=== PATIENT | female | born 1935 | race Caucasian/White ===

== ENCOUNTER 2017-06-29 14:04 | Inpatient (IN) | payer MEDICARE, OTHER ==
[2017-06-29] MEDS ORDERED: IPRATROPIUM-ALBUTEROL 3 ML NEB INHALATION STA (14:15)
[2017-06-29] MEDS ORDERED: methylPREDNISolone SOD SUCCI 125 MG/2 ML VIAL IV STA (14:16)
[2017-06-29] MEDS ORDERED: IPRATROPIUM 0.5 MG/2.5 ML NEBU INHALATION STA (14:16)
[2017-06-29] MEDS ORDERED: ALBUTEROL NEBULIZED 2.5 MG/3 ML INHALATION STA (14:16)
[2017-06-29 14:41] LABS: Basophils % (A) 0 %; Eosinophils # (A) 0.2 k/uL (0-0.7); Eosinophils % (A) 3 %; HCT 43.9 % (34.0-46.0); HGB 14.3 gm/dL (11.4-16.0); Lymphocytes % (A) 11 %; MCH 30.6 pg (25.0-35.0); MCHC 32.5 g/dL (31.0-37.0); MCV 94.1 fL (80.0-100.0); Mean Platelet Volume 7.7; Monocytes # (A) 0.5 k/uL (0-1.0); Monocytes % (A) 5 %; Neutrophils # (A) 6.7 k/uL (1.3-7.7); Neutrophils % (A) 77 %; Platelet Count 144 k/uL (150-450); RBC 4.66 m/uL (3.80-5.40); RDW 14.1 % (11.5-15.5); WBC 8.7 k/uL (3.8-10.6)
--- NOTE | 2017-06-29 14:42 | ED ---
General Adult HPI - General Chief complaint: Shortness of Breath Stated complaint: SOB Time Seen by Provider: 06/29/17 14:16 Source: patient, RN notes reviewed, old records reviewed Mode of arrival: wheelchair Limitations: no limitations - History of Present Illness Initial comments: This is an 82-year-old female to the ER for evaluation. This patient presents today for evaluation regards to shortness of breath severe shortness of breath with history of COPD. Patient also has some history of heart disease, denies chest pain. Patient went to get her mail today came back in the house and was unable to breathe, is brought in by friend who states patient was significantly short of breath is progressively worsened on arrival to ER. Patient unable to give significant history at this time - Related Data Home Medications Medication Instructions Recorded Confirmed Aspirin 81 mg PO DAILY 12/18/13 06/29/17 FLUoxetine HCL [PROzac] 40 mg PO DAILY 12/18/13 06/29/17 Levothyroxine Sodium [Synthroid] 112 mcg PO DAILY 12/18/13 06/29/17 amLODIPine [Norvasc] 5 mg PO DAILY 12/18/13 06/29/17 Cholecalciferol [Vitamin D3] 1,000 unit PO DAILY 10/24/14 06/29/17 Multivit-Min/FA/Lycopene/Lut 1 tab PO DAILY 10/24/14 06/29/17 [Centrum Silver Tablet] Artificial Tears-Hypromellose 1 drops BOTH EYES QID PRN 05/21/16 06/29/17 [Artificial Tear Drops] Ketotifen Fumarate [Zaditor] 1 drop BOTH EYES BID 05/21/16 06/29/17 Biotin 7,500 mcg PO DAILY 06/29/17 06/29/17 Magnesium Gluconate [Magonate] 500 mg PO DAILY 06/29/17 06/29/17 Mometasone/Formoterol [Dulera 200 2 puff INHALATION RT-BID 06/29/17 06/29/17 Mcg/5 Mcg Inhaler] Allergies Allergy/AdvReac Type Severity Reaction Status Date / Time adhesive Allergy SURGICAL Verified 06/29/17 14:49 TAPE PEELED OFF SKIN-states "paper tape is ok" allopurinol Allergy Avoids d/t Verified 06/29/17 14:49 severe family reaction dexlansoprazole Allergy Nausea & Verified 01/20/18 14:49 [From Kapidex] Vomiting & Diarrhea Penicillins Allergy Rash/Hives Verified 06/29/17 14:49 Sulfa (Sulfonamide Allergy Rash/Hives Verified 06/29/17 14:49 Antibiotics) ibuprofen [From Motrin] AdvReac HEMMORRHOIDAL Verified 06/29/17 14:49 BLEEDING Review of Systems ROS Statement: Those systems with pertinent positive or pertinent negative responses have been documented in the HPI. ROS Other: All systems not noted in ROS Statement are negative. Past Medical History Past Medical History: Asthma, Cancer, GERD/Reflux, Hearing Disorder / Deafness, Hypertension, Osteoarthritis (OA), Pneumonia, Pulmonary Embolus (PE), Thyroid Disorder Additional Past Medical History / Comment(s): HX RT KIDNEY CA., PE(1978), HEARING AID LEFT EAR. History of Any Multi-Drug Resistant Organisms: None Reported Past Surgical History: Adenoidectomy, Appendectomy, Back Surgery, Bladder Surgery, Hysterectomy, Orthopedic Surgery, Tonsillectomy Additional Past Surgical History / Comment(s): RT KIDNEY REMOVED. ZULMA SHOULDER SURG. LT KNEE ARTHROSCOPY, . THYROIDECTOMY. RT FOOT SURG X2. D&C X4, TOTAL LEFT KNEE REPLACEMENT, RUPTURED OVARIAN CYST., RT CATARACT (06/30/2014). Past Anesthesia/Blood Transfusion Reactions: No Reported Reaction Additional Past Anesthesia/Blood Transfusion Reaction / Comment(s): NO HX BLOOD TRANSFUSION Past Psychological History: Anxiety, Depression Smoking Status: Former smoker Past Alcohol Use History: None Reported Past Drug Use History: None Reported - Past Family History Mother Brother(s) Family Medical History: Cancer Additional Family Medical History / Comment(s): MOTHER- COLON & BREAST CA Sister(s) Family Medical History: No Reported History Father Additional Family Medical History / Comment(s): WITH AORTIC ANEURYSM Brother(s) Family Medical History: Cancer Additional Family Medical History / Comment(s): COLON & PROSTATE CANCER General Exam Limitations: no limitations General appearance: alert, anxious, in distress Head exam: Present: atraumatic, normocephalic, normal inspection Eye exam: Present: normal appearance, PERRL, EOMI. Absent: scleral icterus, conjunctival injection, periorbital swelling ENT exam: Present: normal exam, mucous membranes moist Neck exam: Present: normal inspection. Absent: tenderness, meningismus, lymphadenopathy Respiratory exam: Present: respiratory distress, wheezes, accessory muscle use, decreased breath sounds, prolonged expiratory. Absent: rales, rhonchi, stridor Cardiovascular Exam: Present: regular rate, normal rhythm, normal heart sounds. Absent: systolic murmur, diastolic murmur, rubs, gallop, clicks GI/Abdominal exam: Present: soft, normal bowel sounds. Absent: distended, tenderness, guarding, rebound, rigid Extremities exam: Present: normal inspection, full ROM, normal capillary refill. Absent: tenderness, pedal edema, joint swelling, calf tenderness Back exam: Present: normal inspection Neurological exam: Present: alert, oriented X3, CN II-XII intact Psychiatric exam: Present: normal affect, normal mood Skin exam: Present: warm, dry, intact, normal color. Absent: rash Course Vital Signs 06/29/17 06/29/17 06/29/17 14:14 14:20 14:27 Temperature 98.0 F Pulse Rate 99 97 Respiratory 42 H 40 H Rate Blood Pressure 152/88 O2 Sat by Pulse 89 L Oximetry 06/29/17 06/29/17 06/29/17 14:45 15:00 15:09 Temperature Pulse Rate 91 94 94 Respiratory 28 H Rate Blood Pressure 152/88 O2 Sat by Pulse 99 Oximetry 06/29/17 06/29/17 15:22 15:48 Temperature Pulse Rate 94 88 Respiratory 25 H Rate Blood Pressure 149/65 O2 Sat by Pulse 94 L Oximetry - Reevaluation(s) Reevaluation #1: 06/29/17 15:55 No significant improvement with prolonged breathing treatment EKG Findings - EKG Comments: EKG Findings:: EKG shows normal sinus rhythm rate 98, OR 182, QRS 74, QTC 467 Medical Decision Making - Medical Decision Making 82 female the ER for evaluation shortness of breath severe COPD exacerbation will admit for breathing treatments and continued evaluation of possible oximetry - Lab Data Result diagrams: 06/29/17 14:25 06/29/17 14:25 Lab Results 06/29/17 06/29/17 06/29/17 Range/Units 14:25 14:25 14:25 WBC 8.7 (3.8-10.6) k/uL RBC 4.66 (3.80-5.40) m/uL Hgb 14.3 (11.4-16.0) gm/dL Hct 43.9 (34.0-46.0) % MCV 94.1 (80.0-100.0) fL MCH 30.6 (25.0-35.0) pg MCHC 32.5 (31.0-37.0) g/dL RDW 14.1 (11.5-15.5) % Plt Count 144 L (150-450) k/uL Neutrophils % 77 % Lymphocytes % 11 % Monocytes % 5 % Eosinophils % 3 % Basophils % 0 % Neutrophils # 6.7 (1.3-7.7) k/uL Lymphocytes # 1.0 (1.0-4.8) k/uL Monocytes # 0.5 (0-1.0) k/uL Eosinophils # 0.2 (0-0.7) k/uL Basophils # 0.0 (0-0.2) k/uL PT (9.0-12.0) sec INR (<1.2) APTT (22.0-30.0) sec Sodium 139 (137-145) mmol/L Potassium 4.8 (3.5-5.1) mmol/L Chloride 102 (98-107) mmol/L Carbon Dioxide 25 (22-30) mmol/L Anion Gap 12 mmol/L BUN 21 H (7-17) mg/dL Creatinine 1.40 H (0.52-1.04) mg/dL Est GFR (MDRD) Af Amer 44 (>60 ml/min/1.73 sqM) Est GFR (MDRD) Non-Af 36 (>60 ml/min/1.73 sqM) Glucose 93 (74-99) mg/dL Plasma Lactic Acid Samir (0.7-2.0) mmol/L Calcium 9.3 (8.4-10.2) mg/dL Magnesium 2.2 (1.6-2.3) mg/dL Total Bilirubin 0.3 (0.2-1.3) mg/dL AST 30 (14-36) U/L ALT 36 (9-52) U/L Alkaline Phosphatase 87 (38-126) U/L Total Creatine Kinase 71 (30-135) U/L CK-MB (CK-2) 0.3 (0.0-2.4) ng/mL CK-MB (CK-2) Rel Index 0.4 Troponin I <0.012 (0.000-0.034) ng/mL NT-Pro-B Natriuret Pep pg/mL Total Protein 6.4 (6.3-8.2) g/dL Albumin 4.1 (3.5-5.0) g/dL Influenza Type A RNA (Not Detectd) Influenza Type B (PCR) (Not Detectd) 06/29/17 06/29/17 06/29/17 Range/Units 14:25 14:25 14:25 WBC (3.8-10.6) k/uL RBC (3.80-5.40) m/uL Hgb (11.4-16.0) gm/dL Hct (34.0-46.0) % MCV (80.0-100.0) fL MCH (25.0-35.0) pg MCHC (31.0-37.0) g/dL RDW (11.5-15.5) % Plt Count (150-450) k/uL Neutrophils % % Lymphocytes % % Monocytes % % Eosinophils % % Basophils % % Neutrophils # (1.3-7.7) k/uL Lymphocytes # (1.0-4.8) k/uL Monocytes # (0-1.0) k/uL Eosinophils # (0-0.7) k/uL Basophils # (0-0.2) k/uL PT 9.6 (9.0-12.0) sec INR 1.0 (<1.2) APTT 21.7 L (22.0-30.0) sec Sodium (137-145) mmol/L Potassium (3.5-5.1) mmol/L Chloride (98-107) mmol/L Carbon Dioxide (22-30) mmol/L Anion Gap mmol/L BUN (7-17) mg/dL Creatinine (0.52-1.04) mg/dL Est GFR (MDRD) Af Amer (>60 ml/min/1.73 sqM) Est GFR (MDRD) Non-Af (>60 ml/min/1.73 sqM) Glucose (74-99) mg/dL Plasma Lactic Acid Samir 1.7 (0.7-2.0) mmol/L Calcium (8.4-10.2) mg/dL Magnesium (1.6-2.3) mg/dL Total Bilirubin (0.2-1.3) mg/dL AST (14-36) U/L ALT (9-52) U/L Alkaline Phosphatase (38-126) U/L Total Creatine Kinase (30-135) U/L CK-MB (CK-2) (0.0-2.4) ng/mL CK-MB (CK-2) Rel Index Troponin I (0.000-0.034) ng/mL NT-Pro-B Natriuret Pep 213 pg/mL Total Protein (6.3-8.2) g/dL Albumin (3.5-5.0) g/dL Influenza Type A RNA (Not Detectd) Influenza Type B (PCR) (Not Detectd) 06/29/17 Range/Units 14:37 WBC (3.8-10.6) k/uL RBC (3.80-5.40) m/uL Hgb (11.4-16.0) gm/dL Hct (34.0-46.0) % MCV (80.0-100.0) fL MCH (25.0-35.0) pg MCHC (31.0-37.0) g/dL RDW (11.5-15.5) % Plt Count (150-450) k/uL Neutrophils % % Lymphocytes % % Monocytes % % Eosinophils % % Basophils % % Neutrophils # (1.3-7.7) k/uL Lymphocytes # (1.0-4.8) k/uL Monocytes # (0-1.0) k/uL Eosinophils # (0-0.7) k/uL Basophils # (0-0.2) k/uL PT (9.0-12.0) sec INR (<1.2) APTT (22.0-30.0) sec Sodium (137-145) mmol/L Potassium (3.5-5.1) mmol/L Chloride (98-107) mmol/L Carbon Dioxide (22-30) mmol/L Anion Gap mmol/L BUN (7-17) mg/dL Creatinine (0.52-1.04) mg/dL Est GFR (MDRD) Af Amer (>60 ml/min/1.73 sqM) Est GFR (MDRD) Non-Af (>60 ml/min/1.73 sqM) Glucose (74-99) mg/dL Plasma Lactic Acid Samir (0.7-2.0) mmol/L Calcium (8.4-10.2) mg/dL Magnesium (1.6-2.3) mg/dL Total Bilirubin (0.2-1.3) mg/dL AST (14-36) U/L ALT (9-52) U/L Alkaline Phosphatase (38-126) U/L Total Creatine Kinase (30-135) U/L CK-MB (CK-2) (0.0-2.4) ng/mL CK-MB (CK-2) Rel Index Troponin I (0.000-0.034) ng/mL NT-Pro-B Natriuret Pep pg/mL Total Protein (6.3-8.2) g/dL Albumin (3.5-5.0) g/dL Influenza Type A RNA Not Detected (Not Detectd) Influenza Type B (PCR) Not Detected (Not Detectd) - Radiology Data Radiology results: report reviewed (Chest x-rays negative for acute disease), image reviewed Critical Care Time Critical Care Time: Yes Total Critical Care Time: 31 Disposition Clinical Impression: Acute exacerbation of chronic obstructive airways disease Disposition: ADMITTED IP TO THIS HOSP Condition: Fair Referrals: Carson Lopez MD [Primary Care Provider] - 1-2 days
[2017-06-29 14:50] LABS: Albumin 4.1 g/dL (3.5-5.0); Calcium 9.3 mg/dL (8.4-10.2); Magnesium 2.2 mg/dL (1.6-2.3); Potassium 4.8 mmol/L (3.5-5.1); Total Bilirubin 0.3 mg/dL (0.2-1.3); Total Protein 6.4 g/dL (6.3-8.2)
[2017-06-29 14:51] LABS: Prothrombin Time 9.6 sec (9.0-12.0)
[2017-06-29 14:57] LABS: Partial Thromboplastin Time 21.7 sec (22.0-30.0)
[2017-06-29 15:07] LABS: Creatine Kinase 71 U/L (30-135)
[2017-06-29 15:19] LABS: Creatine Kinase MB 0.3 ng/mL (0.0-2.4); Troponin I <0.012 ng/mL (0.000-0.034)
--- NOTE | 2017-06-29 15:19 | XR ---
EXAMINATION TYPE: XR chest 1V portable DATE OF EXAM: 06/29/2017 Comparison: 10/29/2014 Clinical History: 82-year-old female with shortness of breath Findings: Are normal size. Atherosclerotic arch calcifications. Mild diffuse interstitial prominence is similar . Stranding bibasilar atelectasis. Reversed left shoulder shoulder arthroplasty. Suspect rotator cuff arthropathy on the right. Impression: Strandy bibasilar atelectasis. No definite acute process.
[2017-06-29] MEDS ORDERED: AZITHROMYCIN 500 MG in SODIUM CHLORIDE 0.9% 250 ML IVPB STA (15:49)
[2017-06-29] MEDS: SODIUM CHLORIDE 0.9% 1,000 ML IV SCH (16:31)
[2017-06-29 18:22] VITALS: BMI 31.4
[2017-06-29] MEDS: methylPREDNISolone SOD SUCCI 125 MG/2 ML VIAL IV SCH (18:30)
--- NOTE | 2017-06-29 19:19 | HP ---
HISTORY AND PHYSICAL ATTENDING PHYSICIAN: Dr. Zhen Lopez. DATE OF ADMISSION: 06/29/2017. CHIEF COMPLAINT: Shortness of breath. HISTORY OF PRESENT ILLNESS: This elderly female presents to the emergency room with marked shortness of breath. The patient has had a cold and cough with congestion for the past few days about 4 days. The patient had no associated fever, chills, but significant congestion. The patient has went out to get the newspaper up, but she could not even get back, that is how short of breath she got. The patient's sister has brought her to the emergency room. The patient denies any other associated symptoms of chest pain, fever, chills. She has had a history of bronchial asthma in the past. It has been fairly stable for a while. The patient previously had significant amount of episodes of dyspnea and episodes of asthma because of some recurrent aspiration due to severe achalasia cardia. The patient's achalasia has been resolved post surgery. PAST MEDICAL HISTORY: Significant for hypertension, mild intermittent asthma without complications, achalasia cardia, gastroesophageal reflux, renal cell carcinoma of the right side, and degenerative arthritis. Also, history of major depression on medical therapy. PAST SURGICAL HISTORY: Significant for right shoulder surgery x3, left shoulder surgery x2, right nephrectomy, partial thyroidectomy and appendectomy. Vaginal hysterectomy, achalasia cardia endoscopic surgery. PERSONAL HISTORY: Never smoker. Alcohol none. MEDICATIONS: Prozac 40 mg daily, levothyroxine 112 mcg daily. Clindamycin 300 mg daily, amlodipine 5 mg daily, Ativan p.r.n. SOCIAL HISTORY: Patient is , lives alone. FAMILY MEDICAL HISTORY: Patient's mother had history of colon cancer and major depression. One sister of Dalton Charles syndrome. Another sister has a history of depression. The patient has a son with significant psychiatric ailment. REVIEW OF SYSTEMS: Neuro: Denies any headaches or dizziness. Psych: No anxiety. Cardiac no chest pain, angina or palpitations. Respiratory denies any chest pain. Does have a cough, congestion, shortness of breath. GI no nausea, vomiting, heartburn, diarrhea. no symptoms of dysuria or hematuria. Extremities: No pain, edema. Constitutional: No fever or chills. PHYSICAL EXAMINATION: Elderly female presently short of breath. Vital signs reveals blood pressure 110/70, pulse rate 90, respirations 26, pulse ox of 92% on oxygen. HEENT: Normocephalic. Neck no JVD. Pupils reactive. Nostrils clear. Oral cavity is moist. Ears reveal no drainage. Neck shows no JVD, carotid bruits or thyromegaly. CHEST: Clear to percussion. The patient has bilateral rhonchi scattered and some expiratory wheeze. Cardiac distant heart sounds S1, S2 with no gallops, murmurs. ABDOMEN: Soft. Bowel sounds active. Extremities: Reveal no edema. Good pulses both upper and lower extremities. Neurological: Awake, alert, oriented x3 with well- coordinated movements. LABORATORY DATA: BUN and creatinine mildly elevated. ASSESSMENT: 1. Acute tracheobronchitis. 2. Acute exacerbation of bronchial asthma. 3. Hypertension. 4. Remote history of carcinoma of the kidney. 5. Chronic kidney disease secondary to previous nephrectomy. PLAN: The patient is stable. Continue present medical regimen. Patient's condition discussed with the patient. Patient is started on antibiotics, steroids, updrafts. Prognosis guarded. Discussed with the patient. MMODL / IJN: [id number] /
[2017-06-29] MEDS: IPRATROPIUM-ALBUTEROL 3 ML NEB INHALATION PRN (19:27)
[2017-06-29] MEDS ORDERED: ARTIFICIAL TEARS-HYPROMELLOSE DROPS 15 ML BTL BOTH EYES PRN (19:37)
[2017-06-29 20:40] LABS: Glucose,Whole Blood 188 mg/dL (75-99)
[2017-06-29] MEDS: SYMBICORT 160-4.5 MCG INHALER INHALATION SCH (21:47)
[2017-06-29] MEDS: INSULIN ASPART 100 UNIT/ML 1 ML 10 ML VIAL SQ SCH (22:05)
[2017-06-29] MEDS: KETOTIFEN 0.025% OPHTH DROPS 5 ML BTL BOTH EYES SCH (22:05)
[2017-06-30] MEDS: methylPREDNISolone SOD SUCCI 125 MG/2 ML VIAL IV SCH ×5 (01:43→23:34)
[2017-06-30] MEDS: LEVOTHYROXINE 112 MCG TAB PO SCH (05:30)
[2017-06-30] MEDS: SODIUM CHLORIDE 0.9% 1,000 ML IV SCH ×3 (05:32→23:35)
[2017-06-30 08:06] LABS: Glucose,Whole Blood 147 mg/dL (75-99)
[2017-06-30] MEDS: SYMBICORT 160-4.5 MCG INHALER INHALATION SCH ×2 (08:12→20:59)
[2017-06-30] MEDS: INSULIN ASPART 100 UNIT/ML 1 ML 10 ML VIAL SQ SCH ×4 (08:36→21:32)
[2017-06-30] MEDS: BIOTIN 7500 MCG PO SCH (08:38)
[2017-06-30] MEDS: FLUoxetine HCL 20 MG CAP PO SCH (08:38)
[2017-06-30] MEDS: ASPIRIN 81 MG PO SCH (08:38)
[2017-06-30] MEDS: CHOLECALCIFEROL 1,000 UNIT TAB PO SCH (08:38)
[2017-06-30] MEDS: amLODIPine 5 MG TAB PO SCH (08:38)
[2017-06-30] MEDS: MAGNESIUM OXIDE 400 MG TAB PO SCH (08:39)
[2017-06-30] MEDS: MULTIVITAMINS, THERA 1 EACH TAB PO SCH (08:39)
[2017-06-30] MEDS: KETOTIFEN 0.025% OPHTH DROPS 5 ML BTL BOTH EYES SCH ×2 (08:51→21:31)
[2017-06-30] MEDS ORDERED: AZITHROMYCIN 500 MG in SODIUM CHLORIDE 0.9% 250 ML IVPB SCH (09:00)
[2017-06-30] MEDS ORDERED: ENOXAPARIN 40 MG/0.4 ML SYRINGE SQ SCH (09:00)
[2017-06-30] MEDS: IPRATROPIUM-ALBUTEROL 3 ML NEB INHALATION PRN ×3 (10:54→20:59)
--- NOTE | 2017-06-30 11:28 | P.PN ---
Subjective Progress Note Date: 06/30/17 Principal diagnosis: Acute exacerbation of bronchial asthma and tracheobronchitis 82-year-old female who was admitted to the hospital because of cough congestion shortness of breath. Patient has history of bronchial asthma. She is noted to have some wheezing rhonchi and chest congestion. Patient is treated with IV antibiotics and steroids updrafts and she is feeling better today. She does have dyspnea with minimal activity to the bathroom. Patient has no chest pain. She does have some cough with minimal sputum production REVIEW OF SYSTEMS: Neuro: Denies any headaches dizziness. Psych: Denies anxiety depression feels oriented. Cardiac: Denies chest pain and angina palpitations. Respiratory: Shortness of breath and cough, no hemoptysis. GI: Denies nausea vomiting or abdominal pain. No diarrhea or constipation, no bowel movement yet. : Denies dysuria hematuria. Extremities: Denies pain. No edema. Skin: Intact. Constitutional: No fever, chills. Objective - Vital Signs Vital signs: Vital Signs Temp 99.1 F 06/30/17 07:00 Pulse 80 06/30/17 11:09 Resp 16 06/30/17 07:00 BP 157/83 06/30/17 07:00 Pulse Ox 95 06/30/17 07:00 Intake & Output 06/29/17 06/30/17 06/30/17 18:59 06:59 18:59 Intake Total 590 Balance 590 Weight 73.028 kg Intake: Oral 590 Other: Voiding Method Toilet Toilet Bedside Commode Bedside Commode # Voids 2 1 # Bowel Movements 1 PHYSICAL EXAMINATION: Cooperative, at present in no acute distress. HEENT: Neck supple. No JVD. Chest: Percussion normal. Bilateral generalized decreased airflow expiratory wheezing or rhonchi appreciated. Cardiac: Normal S1-S2 no gallops no murmur . Abdomen: Soft bowel sounds present. Extremities: No edema no tenderness Neurologically: Awake, alert, oriented with well-coordinated movements. - Labs CBC & Chem 7: 06/29/17 14:25 06/29/17 14:25 Labs: Abnormal Lab Results - Last 24 Hours (Table) 06/29/17 06/29/17 06/29/17 Range/Units 14:25 14:25 14:25 Plt Count 144 L (150-450) k/uL APTT 21.7 L (22.0-30.0) sec BUN 21 H (7-17) mg/dL Creatinine 1.40 H (0.52-1.04) mg/dL POC Glucose (mg/dL) (75-99) mg/dL 06/29/17 06/30/17 Range/Units 20:39 08:00 Plt Count (150-450) k/uL APTT (22.0-30.0) sec BUN (7-17) mg/dL Creatinine (0.52-1.04) mg/dL POC Glucose (mg/dL) 188 H 147 H (75-99) mg/dL Assessment and Plan Assessment: ASSESSMENT: 1. Acute exacerbation bronchial asthma. 2. Tracheobronchitis. 3. Chronic kidney disease stage III. 4. History of nephrectomy for CA. 5. Chronic depression. 6. History of achalasia cardia. PLAN: . Continue present medical regimen patient's condition discussed with the patient prognosis guarded patient is showing some improvement today potential discharge in next 48 hours
[2017-06-30 12:06] LABS: Glucose,Whole Blood 103 mg/dL (75-99)
[2017-06-30 16:33] LABS: Glucose,Whole Blood 132 mg/dL (75-99)
[2017-06-30 19:24] LABS: Hemoglobin A1C 5.3 % (4.0-6.0)
[2017-06-30 20:35] LABS: Glucose,Whole Blood 181 mg/dL (75-99)
[2017-07-01] MEDS: methylPREDNISolone SOD SUCCI 125 MG/2 ML VIAL IV SCH ×4 (05:51→23:55)
[2017-07-01] MEDS: LEVOTHYROXINE 112 MCG TAB PO SCH (05:51)
[2017-07-01 07:08] LABS: Glucose,Whole Blood 127 mg/dL (75-99)
[2017-07-01] MEDS: MULTIVITAMINS, THERA 1 EACH TAB PO SCH (08:14)
[2017-07-01] MEDS: MAGNESIUM OXIDE 400 MG TAB PO SCH (08:14)
[2017-07-01] MEDS: KETOTIFEN 0.025% OPHTH DROPS 5 ML BTL BOTH EYES SCH ×2 (08:14→21:15)
[2017-07-01] MEDS: amLODIPine 5 MG TAB PO SCH (08:15)
[2017-07-01] MEDS: FLUoxetine HCL 20 MG CAP PO SCH (08:15)
[2017-07-01] MEDS: ASPIRIN 81 MG PO SCH (08:15)
[2017-07-01] MEDS: CHOLECALCIFEROL 1,000 UNIT TAB PO SCH (08:15)
[2017-07-01] MEDS: AZITHROMYCIN 500 MG TAB PO SCH (08:15)
[2017-07-01] MEDS: ENOXAPARIN 30 MG/0.3 ML SYRINGE SQ SCH (08:15)
[2017-07-01] MEDS: BIOTIN 7500 MCG PO SCH (08:16)
[2017-07-01] MEDS: INSULIN ASPART 100 UNIT/ML 1 ML 10 ML VIAL SQ SCH ×4 (08:16→21:15)
[2017-07-01] MEDS: SYMBICORT 160-4.5 MCG INHALER INHALATION SCH ×2 (09:29→20:18)
[2017-07-01] MEDS: IPRATROPIUM-ALBUTEROL 3 ML NEB INHALATION PRN ×4 (09:30→20:18)
[2017-07-01 11:46] LABS: Glucose,Whole Blood 126 mg/dL (75-99)
--- NOTE | 2017-07-01 11:47 | XR ---
EXAMINATION TYPE: XR chest 2V DATE OF EXAM: 07/01/2017 COMPARISON: Prior chest x-ray 06/29/2017 HISTORY: Shortness of breath, abnormal chest x-ray TECHNIQUE: Frontal and lateral views of the chest are obtained. FINDINGS: Postop change again noted to the left shoulder. Patient is rotated. There is a spinal curv ature. No evident pneumothorax or pleural effusion. Right shoulder is high riding suggesting chronic rotator cuff tear. Cardiac mediastinal silhouette, pulmonary vascularity and callum are stable. Questio n increased density at the lung base seen best on the lateral exam. IMPRESSION: Findings may reflect atelectasis or scarring rather than pneumonia, correlate, follow-up
[2017-07-01 17:33] LABS: Glucose,Whole Blood 131 mg/dL (75-99)
[2017-07-01 21:30] LABS: Glucose,Whole Blood 150 mg/dL (75-99)
[2017-07-02] MEDS: LEVOTHYROXINE 112 MCG TAB PO SCH (05:46)
[2017-07-02] MEDS: methylPREDNISolone SOD SUCCI 125 MG/2 ML VIAL IV SCH (05:46)
[2017-07-02 07:26] LABS: Glucose,Whole Blood 112 mg/dL (75-99)
[2017-07-02 08:01] VITALS: BP 159/84; RESP 18; TEMP 97.9
--- NOTE | 2017-07-02 08:16 | PN ---
PROGRESS NOTE DATE OF SERVICE: 07/01/2017. CHIEF COMPLAINT: Re-evaluation. HISTORY OF PRESENT ILLNESS: This elderly female was admitted to the hospital because of shortness of breath. She has history of bronchial asthma and exacerbation. The patient does have a previous history of achalasia cardia for which she has had surgery. Since then, she has had infrequent episodes of bronchial asthma. The patient recently had a cold and cough. The patient denies any fever, chills. She is feeling some better. REVIEW OF SYSTEMS: Neuro: Denies any headaches or dizziness. Psych: No anxiety. Cardiac: No chest pain, angina, palpitations. Respiratory: Some shortness of breath, cough. No hemoptysis. GI: No nausea, vomiting, abdominal pain, diarrhea. : No symptoms dysuria or hematuria. Extremities denies pain, edema. Constitutional no fever or chills. PHYSICAL EXAMINATION: Pleasant female no distress. Vitals reveal stable as recorded. The patient is afebrile. Pulse ox was adequate on oxygenation. HEENT: Normocephalic. NECK: Supple. No JVD. CHEST: Clear to percussion. The patient does have some crackles of the left base and bilateral scattered fine expiratory wheeze. Cardiac: Distant sounds S1, S2 with no gallops. Systolic murmur 2/6 left sternal border. ABDOMEN: Soft. No palpable masses. Bowel sounds normal. No organomegaly. No abdominal bruits. Extremities reveal no edema. Good pulses both upper and lower extremities. NEUROLOGIC: Awake, alert, oriented with well-coordinated movements. LABORATORY ASSESSMENT: None new. ASSESSMENT: 1. Tracheobronchitis. 2. Exacerbation of bronchial asthma. 3. Chronic kidney disease stage 3. 4. History of right nephrectomy for carcinoma of the kidneys. 5. History of major depression, controlled. PLAN: The patient is stable. Continue present medical regimen. Patient's condition discussed with the patient. Prognosis is guarded. We will do a chest x-ray to rule out is pneumonic infiltrate left lower lobe. MMODL / IJN: [id number] /
[2017-07-02 08:30] LABS: HCT 42.6 % (34.0-46.0); HGB 13.7 gm/dL (11.4-16.0); MCH 30.3 pg (25.0-35.0); MCHC 32.3 g/dL (31.0-37.0); MCV 93.8 fL (80.0-100.0); Mean Platelet Volume 7.3; Platelet Count 200 k/uL (150-450); RBC 4.54 m/uL (3.80-5.40); RDW 12.6 % (11.5-15.5); WBC 13.9 k/uL (3.8-10.6)
[2017-07-02] MEDS: INSULIN ASPART 100 UNIT/ML 1 ML 10 ML VIAL SQ SCH (08:30)
[2017-07-02] MEDS: KETOTIFEN 0.025% OPHTH DROPS 5 ML BTL BOTH EYES SCH (08:31)
[2017-07-02] MEDS: FLUoxetine HCL 20 MG CAP PO SCH (08:32)
[2017-07-02] MEDS: MAGNESIUM OXIDE 400 MG TAB PO SCH (08:32)
[2017-07-02] MEDS: ENOXAPARIN 30 MG/0.3 ML SYRINGE SQ SCH (08:32)
[2017-07-02] MEDS: ASPIRIN 81 MG PO SCH (08:33)
[2017-07-02] MEDS: CHOLECALCIFEROL 1,000 UNIT TAB PO SCH (08:33)
[2017-07-02] MEDS: AZITHROMYCIN 500 MG TAB PO SCH (08:33)
[2017-07-02] MEDS: BIOTIN 7500 MCG PO SCH (08:34)
[2017-07-02] MEDS: MULTIVITAMINS, THERA 1 EACH TAB PO SCH (08:34)
[2017-07-02] MEDS: amLODIPine 5 MG TAB PO SCH (08:34)
[2017-07-02 08:50] LABS: Anion Gap 14 mmol/L; Blood Urea Nitrogen 32 mg/dL (7-17); Calcium 9.4 mg/dL (8.4-10.2); Carbon Dioxide 21 mmol/L (22-30); Chloride 109 mmol/L (98-107); Glucose 111 mg/dL (74-99); Sodium 144 mmol/L (137-145)
[2017-07-02 08:51] LABS: Potassium 4.5 mmol/L (3.5-5.1)
[2017-07-02] MEDS: SYMBICORT 160-4.5 MCG INHALER INHALATION SCH (08:57)
[2017-07-02] MEDS: IPRATROPIUM-ALBUTEROL 3 ML NEB INHALATION PRN (08:57)
[2017-07-02 09:11] VITALS: PULSE 92
--- NOTE | 2017-07-02 20:46 | PN ---
PROGRESS NOTE ATTENDING PHYSICIAN: Dr. Nicholas Lopez. CHIEF COMPLAINT: Re-evaluation. HISTORY OF PRESENT ILLNESS: 82-year-old female who was admitted to the hospital because of shortness of breath. She had a history of mild intermittent bronchial asthma. The patient had associated tracheobronchitis. The patient has a history of a previous renal cell carcinoma with right nephrectomy. She also has had a previous cardia with previous episodes of recurrent tracheobronchitis and pneumonitis due to aspiration. The patient has had surgery for achalasia cardia with help. She is doing well. She had significant wheezing at the time of admission and dyspnea with minimal activity. She has been up and walked around without much difficulty. She is coughing some, with minimal wheezing. No fever, chills. REVIEW OF SYSTEMS: Neuro: Denies any headaches, dizziness. Psych: No anxiety. Cardiac: No chest pain, angina, palpitations. Respiratory: Cough. No hemoptysis. Denies shortness of breath. GI: No nausea, vomiting, abdominal pain, diarrhea. : No symptoms of dysuria or hematuria. Extremities: No pain. Constitutional: No fever or chills. PHYSICAL EXAMINATION: Pleasant female in no distress. Vital signs revealed temperature 97.9, pulse 90, respirations 18, blood pressure 159/84, pulse ox are 90% on room air. HEENT: Normocephalic. Neck no JVD. CHEST: Clear to percussion. The patient has occasional expiratory wheeze. Occasional rhonchi but markedly improved compared to admission. Cardiac distant heart sounds S1, S2 with no gallops or murmurs. ABDOMEN: Soft. Bowel sounds present. EXTREMITIES: No edema. Neurological awake, alert, oriented with well-coordinated movements. LABORATORY ASSESSMENT: White count 13.9. Potassium is normal. BUN 32, creatinine 0.92. Calcium 9. ASSESSMENT: 1. Acute exacerbation of bronchial asthma. 2. Tracheobronchitis. 3. History of chronic kidney disease stage 3. 4. History of right kidney renal cell carcinoma with post previous surgery. 5. History of major depression, uncontrolled. PLAN: Continue present medical regimen. Patient's condition discussed with the patient. Prognosis is guarded. The patient will be discharged home today. The patient is stable at present. MMODL / IJN: [id number] /
--- NOTE | 2017-07-06 11:53 | P.DS ---
Providers Date of admission: 06/29/17 15:48 Attending physician: Carson Lopze Primary care physician: Carson Lopez Hospital Course: Hospital course: This 82-year-old female was admitted to the hospital after presenting to the emergency room with complaints of shortness of breath noted to be wheezing significantly and coughing and was hypoxic. Patient's In her presence in the emergency room with improvement in her status. Patient does have a history of intermittent bronchial asthma. Her previous episodes were mostly exacerbated by gastroesophageal reflux associated with significant achalasia cardia. Patient has had endoscopic surgery for the same with improvement in the status. She hasn't had an exacerbation first quite a while. The patient did start with an upper respiratory infection few days prior to admission symptoms suggestive of viral upper respiratory at the time. The patient denies any symptoms of reflux. She also has had previous history of nephrectomy for a malignancy right kidney. She has had no recurrence. Patient moderately obese. She also has a history of underlying major depression adequately controlled at present. Following admission patient's treated with [facility] IV hydration antibiotics and steroids. General conditions improved to the point that the patient's able to ambulate without shortness of breath. In view of this patient is discharged home. Patient follow-up in the outpatient. She will continue tapering steroids and antibiotics and use the MDI. Albuterol as needed. Final diagnosis to include 1. Acute respiratory failure 2. Acute exacerbation of bronchial asthma 3. History of mild intermittent bronchial asthma 4. Tracheobronchitis 5. Chronic kidney disease stage III 6. History of carcinoma right kidney 7. History of recurrent major depression, in remission at present 8. Obesity 9. Essential Hypertension on medical therapy 10. Hypothyroidism on replacement therapy 11. Gastroesophageal reflux disease 12. History of achalasia cardia Patient Condition at Discharge: Fair Plan - Discharge Summary New Discharge Prescriptions: New Albuterol Sulfate [Proair Hfa] 2 puff INHALATION Q6HR PRN #1 inhaler PRN Reason: Dyspnea Azithromycin [Zithromax Z-pack] 0 mg PO DIRECTED #6 tab predniSONE 10 mg PO DIRECTED #32 tab Continue Levothyroxine Sodium [Synthroid] 112 mcg PO DAILY amLODIPine [Norvasc] 5 mg PO DAILY FLUoxetine HCL [PROzac] 40 mg PO DAILY Aspirin 81 mg PO DAILY Cholecalciferol [Vitamin D3] 1,000 unit PO DAILY Multivit-Min/FA/Lycopene/Lut [Centrum Silver Tablet] 1 tab PO DAILY Ketotifen Fumarate [Zaditor] 1 drop BOTH EYES BID Artificial Tears-Hypromellose [Artificial Tear Drops] 1 drops BOTH EYES QID PRN PRN Reason: dry eyes Biotin 7,500 mcg PO DAILY Magnesium Gluconate [Magonate] 500 mg PO DAILY Mometasone/Formoterol [Dulera 200 Mcg/5 Mcg Inhaler] 2 puff INHALATION RT-BID Discharge Medication List Aspirin 81 mg PO DAILY 12/18/13 [History] FLUoxetine HCL [PROzac] 40 mg PO DAILY 12/18/13 [History] Levothyroxine Sodium [Synthroid] 112 mcg PO DAILY 12/18/13 [History] amLODIPine [Norvasc] 5 mg PO DAILY 12/18/13 [History] Cholecalciferol [Vitamin D3] 1,000 unit PO DAILY 10/24/14 [History] Multivit-Min/FA/Lycopene/Lut [Centrum Silver Tablet] 1 tab PO DAILY 10/24/14 [ History] Artificial Tears-Hypromellose [Artificial Tear Drops] 1 drops BOTH EYES QID PRN 05/21/16 [History] Ketotifen Fumarate [Zaditor] 1 drop BOTH EYES BID 05/21/16 [History] Biotin 7,500 mcg PO DAILY 06/29/17 [History] Magnesium Gluconate [Magonate] 500 mg PO DAILY 06/29/17 [History] Mometasone/Formoterol [Dulera 200 Mcg/5 Mcg Inhaler] 2 puff INHALATION RT-BID [History] Albuterol Sulfate [Proair Hfa] 2 puff INHALATION Q6HR PRN #1 inhaler 07/02/17 [ Rx] Azithromycin [Zithromax Z-pack] 0 mg PO DIRECTED #6 tab 07/02/17 [Rx] predniSONE 10 mg PO DIRECTED #32 tab 07/02/17 [Rx] Follow up Appointment(s)/Referral(s): Carson Lopez MD [Primary Care Provider] - 07/12/17 4:30 pm Patient Instructions/Handouts: Viral Pneumonia (DC) Discharge Disposition: HOME SELF-CARE
== END 2017-07-02 11:20 | disposition home or self-care (01) | DRG 191 ==
LOC: EC 14:04 → 5ONC 15:48
PROVIDERS: ADMIT Internal Medicine; ATTEND Internal Medicine
DX: J44.0 Chronic obstructive pulmonary disease with (acute) lower respiratory infection (principal); J45.21 Mild intermittent asthma with (acute) exacerbation; F33.9 Major depressive disorder, recurrent, unspecified; N18.3 Chronic kidney disease, stage 3 (moderate); J20.9 Acute bronchitis, unspecified; J44.1 Chronic obstructive pulmonary disease with (acute) exacerbation; I12.9 Hypertensive chronic kidney disease with stage 1 through stage 4 chronic kidney disease, or unspecified chronic kidney disease; K21.9 Gastro-esophageal reflux disease without esophagitis; Z81.8 Family history of other mental and behavioral disorders; Z85.528 Personal history of other malignant neoplasm of kidney; Z90.5 Acquired absence of kidney; Z90.710 Acquired absence of both cervix and uterus
CPT/HCPCS: 36415; 71045; 71046; 80048; 80053; 82550; 82553; 83036; 83605; 83735; 83880; 84484; 85025; 85027; 85610; 85730; 87040; 87502; 93005; 94640; 94644; 94760; 96365; 96375; 99291

== ENCOUNTER → 2018-10-15 | Outpatient (CLI) | payer MEDICARE, OTHER ==
--- NOTE | 2018-10-15 16:38 | BD ---
EXAMINATION TYPE: Axial Bone Density DATE OF EXAM: 10/15/2018 COMPARISON: 2011 CLINICAL HISTORY: 83-year-old female post menopausal Height: 5' Weight: 158 FRAX RISK QUESTIONS: History of Fracture in Adulthood: y Secondary Osteoporosis: RISK FACTORS HISTORY OF: Family History of Osteoporosis: y Postmenopausal woman: MEDICATIONS: Thyroid Medications: Which medication: Levothyroxine How Lon years Additional Medications: blood pressure Additional History: kidney cancer 12 years ago rt nephrectomy EXAM MEASUREMENTS: Bone mineral densitometry was performed using the [facility] [employer]. Bone mineral density as measured about the Lumbar spine is: ----- L1-L4(G/cm2): 1.243 T Score Values are as follows: ----- L2: -0.6 ----- L3: 1.5 ----- L4: 1.6 ----- L1-L4:0.5 Bone mineral density about the R hip (g/cm2): 0.768 Bone mineral density about the L hip (g/cm2): 0.776 T Score values are as follows: -----R Neck: -1.9 -----L Neck: -1.9 -----R Total: -1.3 -----L Total: -1.0 Bone mineral density has: Decreased -5.6% since study of: 05/23/2012 IMPRESSION: Osteopenia (T Score between -2.5 and -1). There is slightly increased risk of fracture and the patient may be considered for treatment. Re-Screen 2-5 years. NOTE: T-SCORE=SD OF THE YOUNG ADULT MEAN.
--- NOTE | 2018-10-16 09:13 | MM ---
Reason for exam: screening (asymptomatic). Last mammogram was performed 2 years and 5 months ago. History: Patient is postmenopausal and has history of other cancer at age 69. Family history of breast cancer in mother at age 61 and breast cancer in maternal aunt. Took estrogen for 5 years. Took progesterone for 5 years. Physical Findings: A clinical breast exam by your physician is recommended on an annual basis and results should be correlated with mammographic findings. MG 3D Screening Mammo W/Cad Bilateral CC and MLO view(s) were taken. Prior study comparison: May 10, 2016, bilateral MG screening mammo w CAD. May 09, 2015, bilateral MG 3d screening mammo w/cad. There are scattered fibroglandular densities. There is chronic nodularity in the right breast. Vascular calcifications bilaterally. No significant changes when compared with prior studies. ASSESSMENT: Negative, BI-RAD 1 RECOMMENDATION: Routine screening mammogram of both breasts in 1 year.
== END | disposition home or self-care (01) ==
LOC: RADMAMWWP 09:09
PROVIDERS: ATTEND Internal Medicine
DX: Z12.31 Encounter for screening mammogram for malignant neoplasm of breast (principal); M85.80 Other specified disorders of bone density and structure, unspecified site; Z78.0 Asymptomatic menopausal state
CPT/HCPCS: 77063; 77067; 77080

== ENCOUNTER → 2020-04-05 | Outpatient (CLI) | payer MEDICARE, OTHER ==
--- NOTE | 2020-04-06 11:49 | MM ---
Reason for exam: screening (asymptomatic). Last mammogram was performed 1 year and 6 months ago. History: Patient is postmenopausal and has history of other cancer at age 69. Family history of breast cancer in mother at age 61 and breast cancer in maternal aunt. Took estrogen for 5 years. Took progesterone for 5 years. Physical Findings: A clinical breast exam by your physician is recommended on an annual basis and results should be correlated with mammographic findings. MG 3D Screening Mammo W/Cad Bilateral CC and MLO view(s) were taken. Prior study comparison: October 15, 2018, bilateral MG 3d screening mammo w/cad. May 10, 2016, bilateral MG screening mammo w CAD. The breast tissue is heterogeneously dense. This may lower the sensitivity of mammography. There are benign appearing vascular calcifications bilaterally. There is chronic nodularity in the right breast. There is no discrete abnormality. ASSESSMENT: Benign, BI-RAD 2 RECOMMENDATION: Routine screening mammogram of both breasts in 1 year.
== END | disposition home or self-care (01) ==
LOC: RADMAMWWP 11:11
PROVIDERS: ATTEND Internal Medicine
DX: Z12.31 Encounter for screening mammogram for malignant neoplasm of breast (principal); Z08 Encounter for follow-up examination after completed treatment for malignant neoplasm; Z80.3 Family history of malignant neoplasm of breast
CPT/HCPCS: 77063; 77067

== ENCOUNTER → 2021-04-06 | Outpatient (CLI) | payer MEDICARE, OTHER ==
--- NOTE | 2021-04-06 15:22 | XR ---
EXAMINATION TYPE: XR chest 2V DATE OF EXAM: 04/06/2021 COMPARISON: Chest x-ray 07/01/2017 HISTORY: RO5.9 TECHNIQUE: Frontal and lateral views of the chest are obtained. FINDINGS: There is no focal air space opacity, pleural effusion, or pneumothorax seen. The cardiac silhouette size is within normal limits. The osseous structures are stable, postoperative change no hector to the left shoulder, right shoulder is high riding, that may be chronic rotator cuff tear, there are overlying artifacts. There is thoracic spondylosis present. The aorta is dense. IMPRESSION: No acute cardiopulmonary process.
== END | disposition home or self-care (01) ==
LOC: RADXRMAIN 14:41
PROVIDERS: ATTEND Internal Medicine
DX: R05.9 Cough, unspecified (principal)
CPT/HCPCS: 71046

== ENCOUNTER → 2021-04-19 | Outpatient (CLI) | payer MEDICARE, OTHER ==
--- NOTE | 2021-04-20 07:18 | CT ---
EXAMINATION TYPE: CT abdomen pelvis wo con DATE OF EXAM: 04/19/2021 HISTORY: Abdominal pain with urgency with bowel movements. CT DLP: 695.3 mGycm. Automated Exposure Control for Dose Reduction was Utilized. TECHNIQUE: CT scan of the abdomen and pelvis is performed with oral but without IV contrast. COMPARISON: NONE FINDINGS: Within the limitations of a non-contrast study, the following observations are made. LUNG BASES: Slightly elevated right hemidiaphragm. Mild bibasilar linear scarring and/or atelectasis LIVER/GB: There is 1.2 cm rounded low dense lesion right hepatic lobe. Additional 9 mm lesion left he patic lobe axial image 19. Subcentimeter lesion posterior right hepatic lobe axial image 21. Lesions too small to further characterize but favor benign etiology. PANCREAS: No significant abnormality is seen. SPLEEN: No significant abnormality is seen. ADRENALS: No significant abnormality is seen. KIDNEYS: Right kidney surgically absent. Left kidney has 1.4 cm exophytic low dense lesion upper pole left kidney coronal image 61 consistent with simple thin-walled cyst. There is suspected roughly 1.5 cm hemorrhagic or proteinaceous cyst with dependent milk of calcium coronal image 61 upper pole leve l left kidney. No left-sided hydronephrosis. Bladder poorly distended and is thus suboptimally evalua hector. BOWEL: The oral contrast only reaches level of the splenic flexure. Mild distention of stomach is see n. No suspicious small bowel dilatation. Moderate fecal prominence in the transverse and left colon. Diverticula in the sigmoid colon. No CT evidence for acute diverticulitis. GENITAL ORGANS: Uterus surgically absent. Scattered bilateral pelvic phleboliths. Normal sized remnan t ovaries. LYMPH NODES: No greater than 1cm abdominal or pelvic lymph nodes are appreciated. OSSEOUS STRUCTURES: Dextroconvex scoliosis centered at L2 level. Moderate multilevel disc space narro wing and vacuum disc phenomenon throughout the lumbar spine. Facet arthropathy mid to lower lumbar le vels. OTHER: Moderate calcified plaque of the aorta extends into branch vessels. IMPRESSION: No bowel obstruction. Moderate colonic fecal stasis. Distal colonic diverticulosis withou t CT evidence for acute diverticulitis. Surgically absent right kidney. No acute findings are seen.
== END | disposition home or self-care (01) ==
LOC: RADCTMAIN 15:17
PROVIDERS: ATTEND Internal Medicine
DX: R19.5 Other fecal abnormalities (principal); K57.30 Diverticulosis of large intestine without perforation or abscess without bleeding
CPT/HCPCS: 74176

== ENCOUNTER → 2021-08-07 | Outpatient (CLI) | payer MEDICARE, OTHER ==
--- NOTE | 2021-08-07 17:23 | XR ---
Lumbar spine HISTORY: Low back pain 3 views of lumbar spine There is a rotatory dextroscoliosis present. Bone mineralization is reduced. Lumbar vertebral bodies show preserved height. Multiple level spondylosis is present. Loss of disc height is present at inter vertebral levels. Sclerosis is present in the posterior elements. Vacuum phenomenon present at the in tervertebral levels L5-S1 and L4-5. Surgical clips are noted in the right paraspinal location. IMPRESSION: Osteopenia, scoliosis, degenerative disc disease and facet arthropathy.
== END | disposition home or self-care (01) ==
LOC: RADXRMAIN 14:10
PROVIDERS: ATTEND Internal Medicine
DX: M85.88 Other specified disorders of bone density and structure, other site (principal); M41.86 Other forms of scoliosis, lumbar region; M51.36 Other intervertebral disc degeneration, lumbar region; M47.816 Spondylosis without myelopathy or radiculopathy, lumbar region
CPT/HCPCS: 72100

== ENCOUNTER → 2021-11-16 | Outpatient (CLI) | payer MEDICARE, OTHER ==
--- NOTE | 2021-11-17 04:59 | MR ---
EXAMINATION TYPE: MR cervical spine wo con DATE OF EXAM: 11/16/2021 COMPARISON: None HISTORY: Neck pain Multiplanar multiecho imaging of the cervical spine with no contrast. There is some straightening of the spine. There is moderate disc space narrowing from C3 to C6. There is endplate spur formation and small disc bulges from C3 to C6. Spinal canal is narrowed to 5.3 mm a t C4-5 which is the narrowest point. Canal measures 6.5 mm at C5-6. No evidence of cervical cord sheila a. There is slight flattening of the cervical spinal cord. The brainstem is intact. No compression fr acture. IMPRESSION: Multilevel spondylotic changes with straightening. There is some spinal stenosis that is more noticea ble at C4-5 and measures 5.3 mm.
== END | disposition home or self-care (01) ==
LOC: RADMRIMAIN 12:19
PROVIDERS: ATTEND Physical Medicine & Rehabilitation
DX: M47.812 Spondylosis without myelopathy or radiculopathy, cervical region (principal); M48.02 Spinal stenosis, cervical region
CPT/HCPCS: 72141

== ENCOUNTER → 2021-12-09 | Outpatient (CLI) | payer MEDICARE, OTHER ==
--- NOTE | 2021-12-09 09:58 | CT ---
EXAMINATION TYPE: CT abdomen pelvis wo con CT DLP: 494.0 mGycm, Automated exposure control for dose reduction was used. DATE OF EXAM: 12/09/2021 8:26 AM COMPARISON: CT abdomen pelvis most recent from 04/19/2021 CLINICAL INDICATION:Female, 86 years old with history of N28.1 CYST OF KIDNEY; Cyst of kidney upper a bdominal pressure and pain per patient. TECHNIQUE: Standard CT of the abdomen and pelvis following the administration of 100 cc of Isovue 3 00 IV contrast material. Coronal and sagittal reformats were performed. FINDINGS: LOWER CHEST: A left lower lobe atelectasis/scarring changes compared to prior. ABDOMEN LIVER: Stable scattered probable hepatic cyst. GALLBLADDER AND BILE DUCTS: Layering higher density likely representing biliary sludge. PANCREAS: Unremarkable. SPLEEN: Unremarkable. ADRENAL GLANDS: Unremarkable. KIDNEYS AND URETERS: The right kidney is surgically absent. Left kidney cyst measuring up to 17 mm wi th a simple appearance. Additional high density indeterminate cyst with peripheral calcifications jessica sures up to 21 mm which is similar to prior. There is a nonobstructing left renal calculus measuring 2 mm. PELVIS BLADDER: Incompletely distended but grossly unremarkable. REPRODUCTIVE: Unremarkable. ABDOMEN & PELVIS STOMACH AND BOWEL: Scattered clonic diverticula present. There is a large stool burden throughout th e colon. No evidence of bowel obstruction. PERITONEUM: No evidence of pneumoperitoneum or free fluid. VASCULATURE: No evidence of aortic aneurysm. Mild to moderate atherosclerosis throughout the arterial vasculature. MUSCULOSKELETAL: No acute osseous abnormalities. Multilevel disc degeneration changes throughout the spine. Scoliosis changes of the spine apex L2. Multilevel facet joint arthropathy is present througho ut the spine with multilevel at least mild spinal canal stenosis. LYMPH NODES: No gross evidence for lymphadenopathy. SOFT TISSUE/ABDOMINAL WALL: Unremarkable IMPRESSION: 1. Stable left indeterminate renal cyst with peripheral calcification. Additional stable simple appea ring left renal cyst. 2. Surgically absent right kidney. No evidence for recurrence. 3. No evidence for acute abdominal process, there is a large stool burden noted however. 4. Colonic diverticulosis. 5. Biliary sludge 6. Nonobstructing left renal calculi. 7. New atelectasis/scarring changes within the left lung base.
== END | disposition home or self-care (01) ==
LOC: RADCTMAIN 07:49
PROVIDERS: ATTEND Internal Medicine
DX: N28.1 Cyst of kidney, acquired (principal); K57.30 Diverticulosis of large intestine without perforation or abscess without bleeding; N20.0 Calculus of kidney
CPT/HCPCS: 74176

== ENCOUNTER → 2021-12-12 | Outpatient (CLI) | payer MEDICARE, OTHER ==
--- NOTE | 2021-12-12 17:42 | BD ---
EXAMINATION TYPE: Axial Bone Density DATE OF EXAM: 12/12/2021 CLINICAL HISTORY: 86 years year old Female. ICD-10 CODE: M89.9 DISORDER OF BONE Height: 5 FT Weight: 153 FRAX RISK QUESTIONS: Alcohol (3 or more units per day): NO Family History (Parent hip fracture): NO Glucocorticoids (More than 3mos): NO (Ex: prednisone, prednisolone, methylprednisolone, dexamethasone, and hydrocortisone). History of Fracture in Adulthood: YES Secondary Osteoporosis: 1. Type 1 Diabetes: NO 2. Hyperthyroidism: NO 3. Menopause before 45: NO 4. Malnutrition: NO 5. Chronic liver disease: NO Rheumatoid Arthritis: NO Current Tobacco Use: NO RISK FACTORS HISTORY OF: Surgery to Spine/Hip(right/left)/Wrist (right/left): NO Family History of Osteoporosis: NO Active: YES Diet low in dairy products/other sources of calcium: NO Postmenopausal woman: YES Take estrogen and/or progesterone medications: NO Lost more than 2 inches in height since high school: YES Frequent falls: YES Poor Health: FAIR Adrenal Insufficiency: KIDNEY CANCER RT KIDNEY REMOVED MEDICATIONS: Thyroid Medications: YES Which medication: LEVOTHYROXINE How Long: OVER 60 YEARS Additional Medications: PRESERVISION, VIT D, BLOOD PRESSURE MEDS, PROZAC,LEVOTHYROXINE,STOOL SOFTENE R, BABY ASPIRIN, Additional History: EXAM MEASUREMENTS: Bone mineral densitometry was performed using the [employer] System. Bone mineral density as measured about the Lumbar spine is: ----- L1-L4(G/cm2): 1.302 T Score Values are as follows: ----- L1: -0.2 ----- L2: -0.7 ----- L3: 1.2 ----- L4: 2.3 ----- L1-L4: 1.0 Bone mineral density has: INCREA SED 2.3 % since study of: 2018 Bone mineral density about the R hip (g/cm2): 0.741 Bone mineral density about the L hip (g/cm2): 0.752 T Score values are as follows: -----R Neck: -2.1 -----L Neck: -2.1 -----R Total: -1.5 -----L Total: -1.3 Bone mineral density has: DECREASED -3.5 % since study of: 2019 FRAX%s: The graph provided illustrates a 22.8 % chance for a major osteoporotic fx and a 6.8 % chance for the hips probability for fx in 10 years time. IMPRESSION: Osteopenia (T Score between -2.5 and -1). There is slightly increased risk of fracture and the patient may be considered for treatment. Re-Screen 2-5 years. NOTE: T-SCORE=SD OF THE YOUNG ADULT MEAN.
== END | disposition home or self-care (01) ==
LOC: RADBDWWP 07:37
PROVIDERS: ATTEND Internal Medicine
DX: M85.89 Other specified disorders of bone density and structure, multiple sites (principal)
CPT/HCPCS: 77080

== ENCOUNTER → 2023-03-11 | Outpatient (CLI) | payer MEDICARE, OTHER ==
[2023-03-11 11:05] LABS: Basophils # (A) 0.07 X 10*3/uL (0.00-0.10); Basophils % (A) 0.7 %; Eosinophils # (A) 0.33 X 10*3/uL (0.04-0.35); Eosinophils % (A) 3.1 %; HCT 38.8 % (37.2-46.3); HGB 11.9 d/dL (12.0-15.0); MCH 25.9 pg (27.0-32.0); MCHC 30.7 d/dL (32.0-37.0); MCV 84.3 FL (80.0-97.0); Mean Platelet Volume 9.7 FL (9.5-12.2); Monocytes # (A) 0.89 X 10*3/uL (0.20-1.00); Monocytes % (A) 8.3 %; NRBC Per 100 WBC 0 X 10*3/uL (0.00-0.01); Neutrophils # (A) 7.72 X 10*3/uL (1.80-7.70); Neutrophils % (A) 72.3 %; Platelet Count 281 X 10*3/uL (140-440); RDW 14.2 % (11.5-14.5); WBC 10.67 X 10*3/uL (4.50-10.00)
[2023-03-11 11:55] LABS: ALT 16 U/L (8-44); AST 31 U/L (13-35); Albumin 3.8 d/dL (3.8-4.9); Alkaline Phosphatase 100 U/L (41-126); BUN/Creat Ratio 18.25 Ratio (12.00-20.00); Blood Urea Nitrogen 21.9 mg/dL (9.0-27.0); Calcium 9.3 mg/dL (8.7-10.3); Carbon Dioxide 26.7 mmol/L (21.6-31.8); Chloride 101 mmol/L (96-109); Globulin 1.9 d/dL (1.6-3.3); Glucose 92 mg/dL (70-110); LDL Cholesterol,Calculated 78.2 mg/dL (0.0-131.0); Potassium 5.2 mmol/L (3.5-5.5); Sodium 138 mmol/L (135-145); Total Bilirubin 0.3 mg/dL (0.3-1.2); Total Protein 5.7 d/dL (6.2-8.2)
== END | disposition home or self-care (01) ==
LOC: LABWHC1 07:56
PROVIDERS: ATTEND Family Medicine
DX: Z00.00 Encounter for general adult medical examination without abnormal findings (principal)
CPT/HCPCS: 36415; 80053; 80061; 82306; 84443; 85025

== ENCOUNTER → 2023-07-15 | Outpatient (CLI) | payer MEDICARE ==
[2023-07-15 12:09] LABS: African American GFR (CKD) 60 (>60 ml/min/1.73 sqM); Blood Urea Nitrogen 23 mg/dL (7-17); Non-African American GFR(CKD) 52 (>60 ml/min/1.73 sqM)
--- NOTE | 2023-07-15 13:50 | CT ---
EXAMINATION TYPE: CT ChestAbdPelvis w con DATE OF EXAM: 07/15/2023 COMPARISON: December 09, 2021 HISTORY: kidney ca CT DLP: 1343 mGycm CONTRAST: CT scan of the chest, abdomen and pelvis is performed with Oral Contrast and with IV Contrast, patien t injected with 100 mL of Isovue 300. CT Chest: LUNGS: The lungs are clear and free of infiltrate or atelectasis. Nodule left lower lobe measures 1.1 cm versus 1.2 cm previously. No pleural effusion or CT evidence of interstitial lung disease. MEDIASTINUM: Thoracic aorta is of normal caliber. The heart is not enlarged. No evidence for media stinal mass or adenopathy. HILAR STRUCTURES: No evidence for mass. No hilar adenopathy is appreciated. OTHER: No significant abnormality. CONTRAST CT ABDOMEN AND PELVIS FINDINGS: LIVER/GB: No calcified gallstones. Few scattered simple hepatic cysts noted. Biliary tree is of nor mal caliber. PANCREAS: No inflammation. No distinct mass. SPLEEN: No splenic enlargement. No lesion seen. ADRENALS: No nodule. No thickening. KIDNEYS/BLADDER: No hydronephrosis. No nephrolithiasis. Right-sided nephrectomy changes. Right tea l fossa demonstrates clips and no evidence for mass. The left kidney demonstrates mild compensatory h ypertrophy. Approximately 4-5 simple cysts are noted. No solid left renal masses are present. BOWEL: Normal appendix. Normal bowel caliber. No inflammation. Moderate fecal stasis noted. GENITAL ORGANS: No gross abnormality. LYMPH NODES: No greater than 1cm abdominal or pelvic lymph nodes are appreciated. AORTA: No significant abnormality. OSSEOUS STRUCTURES: No significant abnormality is seen. OTHER: No significant additional abnormality is seen. IMPRESSION: 1. Right-sided nephrectomy changes without evidence for recurrent disease. 2. Essentially stable pulmonary nodule left lower lobe. 3. Hepatic and left renal cysts.
== END | disposition home or self-care (01) ==
LOC: RADCTMAIN 11:12
PROVIDERS: ATTEND Internal Medicine
DX: C64.9 Malignant neoplasm of unspecified kidney, except renal pelvis (principal); I10 Essential (primary) hypertension; N28.1 Cyst of kidney, acquired; E03.9 Hypothyroidism, unspecified; R63.4 Abnormal weight loss; R06.02 Shortness of breath; R91.1 Solitary pulmonary nodule; Z71.3 Dietary counseling and surveillance; Z90.5 Acquired absence of kidney
CPT/HCPCS: 82565; 84520; 71260; 74177; 36415; Q9967

== ENCOUNTER 2023-08-28 10:21 | Emergency (ER) | payer MEDICARE ==
--- NOTE | 2023-08-28 10:32 | ED ---
Skin/Abscess/FB HPI - General Chief complaint: Skin/Abscess/Foreign Body Stated complaint: possible skin infection Time Seen by Provider: 08/28/23 10:32 Source: patient, RN notes reviewed Mode of arrival: ambulatory Limitations: no limitations - History of Present Illness Initial comments: 88-year-old female presents to the emergency department chief complaint of a left shoulder bump. States that she noticed the bump form on Saturday which was initially a hard area, but has become fluctuant over the past few days. Patient states that the area was erythematous over the weekend, but erythema has subsided and the area has been itchy. Denies any numbness or tingling to the overlying raised lesion or to the left extremity. Patient denies loss of range of motion. She denies systemic symptoms such as fever, nausea, chills. States that she had a total reverse shoulder replacement in 2015, denies any complications with the surgery, but states that still does not have total range of motion after surgery. - Related Data Home Medications Medication Instructions Recorded Confirmed Aspirin 81 mg PO DAILY 12/18/13 08/28/23 FLUoxetine HCL [PROzac] 60 mg PO DAILY 12/18/13 08/28/23 Levothyroxine Sodium [Synthroid] 112 mcg PO DAILY 12/18/13 08/28/23 amLODIPine [Norvasc] 5 mg PO DAILY 12/18/13 08/28/23 Multivit-Min/FA/Lycopene/Lut 1 tab PO DAILY 10/24/14 08/28/23 [Centrum Silver Tablet] Artificial Tears-Hypromellose 1 drops BOTH EYES QID PRN 05/21/16 08/28/23 [Artificial Tear Drops] Calcium 600mg 1 tab PO BID 08/21/23 08/28/23 Mv-Min/FA/Vit K/Lutein/Zeaxant 1 each PO BID 08/21/23 08/28/23 [Preservision Areds 2 Plus Mv] Allergies Allergy/AdvReac Type Severity Reaction Status Date / Time adhesive Allergy SURGICAL Verified 08/28/23 10:26 TAPE PEELED OFF SKIN-states "paper tape is ok" allopurinol Allergy Avoids d/t Verified 08/28/23 10:26 severe family reaction dexlansoprazole Allergy Nausea & Verified 08/28/23 10:26 [From Kapidex] Vomiting & Diarrhea Penicillins Allergy Rash/Hives Verified 08/28/23 10:26 Sulfa (Sulfonamide Allergy Rash/Hives Verified 08/28/23 10:26 Antibiotics) ibuprofen [From Motrin] AdvReac HEMMORRHOIDAL Verified 08/28/23 10:26 BLEEDING Review of Systems ROS Statement: Those systems with pertinent positive or pertinent negative responses have been documented in the HPI. ROS Other: All systems not noted in ROS Statement are negative. Past Medical History Past Medical History: Asthma, Cancer, GERD/Reflux, Hearing Disorder / Deafness, Hypertension, Osteoarthritis (OA), Pneumonia, Pulmonary Embolus (PE), Thyroid Disorder Additional Past Medical History / Comment(s): HX RT KIDNEY CA., PE(1978), HEARING AID LEFT EAR. History of Any Multi-Drug Resistant Organisms: None Reported Past Surgical History: Adenoidectomy, Appendectomy, Back Surgery, Bladder Surgery, Hysterectomy, Orthopedic Surgery, Tonsillectomy Additional Past Surgical History / Comment(s): RT KIDNEY REMOVED. ZULMA SHOULDER SURG. LT KNEE ARTHROSCOPY, . THYROIDECTOMY. RT FOOT SURG X2. D&C X4, TOTAL LEFT KNEE REPLACEMENT, RUPTURED OVARIAN CYST., RT CATARACT (06/30/2014). Past Anesthesia/Blood Transfusion Reactions: No Reported Reaction Additional Past Anesthesia/Blood Transfusion Reaction / Comment(s): NO HX BLOOD TRANSFUSION Past Psychological History: Anxiety, Depression Past Alcohol Use History: None Reported Past Drug Use History: None Reported - Past Family History Mother Brother(s) Family Medical History: Cancer Additional Family Medical History / Comment(s): MOTHER- COLON & BREAST CA Sister(s) Family Medical History: No Reported History Father Additional Family Medical History / Comment(s): WITH AORTIC ANEURYSM Brother(s) Family Medical History: Cancer Additional Family Medical History / Comment(s): COLON & PROSTATE CANCER General Exam Limitations: no limitations General appearance: alert, in no apparent distress Head exam: Present: atraumatic, normocephalic, normal inspection Eye exam: Present: normal appearance, PERRL, EOMI. Absent: scleral icterus, conjunctival injection, periorbital swelling ENT exam: Present: normal exam, mucous membranes moist Neck exam: Present: normal inspection. Absent: tenderness, meningismus, lymphadenopathy Respiratory exam: Present: normal lung sounds bilaterally. Absent: respiratory distress, wheezes, rales, rhonchi, stridor Cardiovascular Exam: Present: regular rate, normal rhythm, normal heart sounds. Absent: systolic murmur, diastolic murmur, rubs, gallop, clicks GI/Abdominal exam: Present: soft, normal bowel sounds. Absent: distended, tenderness, guarding, rebound, rigid Left Shoulder Exam: Present: full ROM, swelling (Fluctuant area approximately 2-3 cm on the anterior shoulder), other (Active range of motion is slightly impaired yet does not elicit pain). Absent: tenderness, laceration, ecchymosis, deformity Upper Arm exam: Present: normal inspection Elbow exam: Present: normal inspection Forearm Wrist exam: Present: normal inspection Hand Wrist exam: Present: normal inspection Neuro motor exam: Present: wrist extension intact, thumb opposition intact Vascular: Present: normal capillary refill. Absent: vascular compromise Back exam: Present: normal inspection Neurological exam: Present: alert, oriented X3, CN II-XII intact Psychiatric exam: Present: normal affect, normal mood Skin exam: Present: warm, dry, intact, normal color. Absent: rash Course Vital Signs 08/28/23 08/28/23 10:22 11:20 Temperature 97.9 F 98 F Pulse Rate 84 80 Respiratory 18 18 Rate Blood Pressure 165/72 155/81 O2 Sat by Pulse 96 98 Oximetry Medical Decision Making - Medical Decision Making Was pt. sent in by a medical professional or institution (Dr. PA, GRINDING MACHINE TENDER, urgent care, hospital, or long term...) When possible be specific @ -No Did you speak to anyone other than the patient for history (EMS, parent, family, police, friend...)? What history was obtained from this source @ -No Did you review nursing and triage notes (agree or disagree)? Why? @ -I reviewed and agree with nursing and triage notes Were old charts reviewed (outside hosp., previous admission, EMS record, old EKG, old radiological studies, urgent care reports/EKG's, long term records)? Report findings @ -No old charts were reviewed Differential Diagnosis (chest pain, altered mental status, abdominal pain women, abdominal pain men, vaginal bleeding, weakness, fever, dyspnea, syncope, headache, dizziness, GI bleed, back pain, seizure, CVA, palpatations, mental health, musculoskeletal)? @ - bursitis, septic arthritis, cyst, abscess EKG interpreted by me (3pts min.). @ -None X-rays interpreted by me (1pt min.). @ -complete xray of left shoulder reveals widening of the AC joint space with demineralization, no acute bony process present. CT interpreted by me (1pt min.). @ -None done U/S interpreted by me (1pt. min.). @ -None done What testing was considered but not performed or refused? (CT, X-rays, U/S, labs)? Why? @ -None What meds were considered but not given or refused? Why? @ -None Did you discuss the management of the patient with other professionals (professionals i.e. , PA, GRINDING MACHINE TENDER, lab, RT, psych nurse, forensic social worker, er nurse, teacher, armoured corps officer, hospice case manager)? Give summary @ -No Was smoking cessation discussed for >3mins.? @ -No Was critical care preformed (if so, how long)? @ -No Were there social determinants of health that impacted care today? How? (Homelessness, low income, unemployed, alcoholism, drug addiction, transportation, low edu. Level, literacy, decrease access to med. care, residential, rehab)? @ -No Was there de-escalation of care discussed even if they declined (Discuss DNR or withdrawal of care, Hospice)? DNR status @ -No What co-morbidities impacted this encounter? (DM, HTN, Smoking, COPD, CAD, Cancer, CVA, ARF, Chemo, Hep., AIDS, mental health diagnosis, sleep apnea, mor bid obesity)? @ -None Was patient admitted / discharged? Hospital course, mention meds given and route, prescriptions, significant lab abnormalities, going to OR and other pertinent info. @ -Discharged. 88-year-old female with a chief complaint of a lump on her left shoulder. On physical exam a 2 cm area of fluctuance was noted over the patient's anterior shoulder which did not limit range of motion and did not elicit pain with palpation. Areas of erythema were noted around fluctuant area, patient states that the area has been itchy which is resulted in her scratching the skin, which looks like the area of erythema is most likely due to self- inflicted superficial trauma to the skin other than a skin infection. denies numbness or tingiling to the extremity. X-ray of left shoulder reveals complete xray of left shoulder reveals widening of the AC joint space with demineralization, no acute bony process present. Due to patient's presentation and overall appearance of the area of fluctuance unlikely that this is an infectious process. Discuss findings with patient, swelling is most likely secondary to shoulder bursitis. Recommend patient use anti-inflammatories at home such as Tylenol and warm compresses to the affected area. Recommend follow-up with patient's orthopedic surgeon for further intervention. Patient begins to experience fevers, chills, nausea, vomiting please return to the emergency department for further evaluation. This was discussed with my attending, Dr. Centeno, is agreeable with imaging interpretation and with discharge. Undiagnosed new problem with uncertain prognosis? @ -No Drug Therapy requiring .intensive monitoring for toxicity (Heparin, Nitro, Insulin, Cardizem)? @ -No Were any procedures done? @ -No Diagnosis/symptom? @ -shoulder bursitis Acute, or Chronic, or Acute on Chronic? @ -acute Uncomplicated (without systemic symptoms) or Complicated (systemic symptoms)? @ -uncomplicated Side effects of treatment? @ -No Exacerbation, Progression, or Severe Exacerbation? @ -No Poses a threat to life or bodily function? How? (Chest pain, [place], [place], pneumonia, PE, COPD, DKA, ARF, appy, cholecystitis, CVA, Diverticulitis, Homicidal, Suicidal, threat to staff... and all critical care pts) @ -No Disposition Clinical Impression: Bursitis Narrative: Please return to the Emergency Department if symptoms worsen or any other concerns. Symptomatic treatment at home using Tylenol and an anti-inflammatory and using warm compresses on the area. Recommend patient follow-up with their orthopedic surgeon for further evaluation. Disposition: HOME SELF-CARE Condition: Good Instructions (If sedation given, give patient instructions): Shoulder Bursitis (ED) Is patient prescribed a controlled substance at d/c from ED?: No Referrals: Bj Schulte MD [Primary Care Provider] - 1-2 days Time of Disposition: 11:15
[2023-08-28 11:01] VITALS: RESP 18
--- NOTE | 2023-08-28 11:04 | XR ---
EXAMINATION TYPE: XR shoulder complete LT DATE OF EXAM: 08/28/2023 COMPARISON: NONE HISTORY: Pain TECHNIQUE: Three views are submitted. FINDINGS: Chronic deformity of the distal clavicle widening of the AC joint. Left shoulder replacement surgery noted. Soft tissue ossification noted. Visualized lung preciado are clear. Diffuse demineralization. IMPRESSION: 1. No acute process. 2. Postsurgical change.
[2023-08-28 11:39] VITALS: BP 155/81; PULSE 80; TEMP 98
== END 2023-08-28 11:23 | disposition home or self-care (01) ==
LOC: EC 10:21
DX: M71.9 Bursopathy, unspecified (principal); Z88.2 Allergy status to sulfonamides; Z88.0 Allergy status to penicillin; Z88.6 Allergy status to analgesic agent; Z88.8 Allergy status to other drugs, medicaments and biological substances
CPT/HCPCS: 99283

== ENCOUNTER → 2024-02-17 | Outpatient (CLI) | payer MEDICARE ==
[2024-02-17 15:41] LABS: Blood Urea Nitrogen 28.6 mg/dL (9.0-27.0); Calcium 9.3 mg/dL (8.7-10.3); Carbon Dioxide 24.6 mmol/L (21.6-31.8); Chloride 102 mmol/L (96-109); Glucose 101 mg/dL (70-110); Potassium 4.3 mmol/L (3.5-5.5); Sodium 140 mmol/L (135-145)
== END | disposition home or self-care (01) ==
LOC: LABWHC1 10:44
PROVIDERS: ATTEND Internal Medicine
DX: N17.9 Acute kidney failure, unspecified (principal)
CPT/HCPCS: 36415; 80048

== ENCOUNTER → 2024-08-31 | Outpatient (CLI) | payer MEDICARE ==
--- NOTE | 2024-08-31 16:00 | XR ---
EXAMINATION TYPE: XR shoulder limited LT DATE OF EXAM: 08/31/2024 3:47 PM INDICATION: Patient age:Female; 89 years old; Reason for study: M25.512 PAIN IN LEFT SHOULDER; pain COMPARISON: Left shoulder radiograph 08/28/2023 TECHNIQUE: The left shoulder was examined in AP and scapular Y projections. . FINDINGS: Postsurgical changes from left shoulder arthroplasty. Hardware appears intact with appropriate alignm ent. Diffuse bone demineralization. No acute fracture or dislocation. There is chronic deformity of t he distal clavicle with widening of the AC joint. Possible bursal distention. The remaining portions of the visualized chest are unremarkable. IMPRESSION: 1. No acute fracture or dislocation. 2. Postsurgical changes from left shoulder arthroplasty. 3. Chronic deformity of the distal clavicle with widening of the AC joint. 4. Possible bursal distention. Correlate for bursitis. [facility], , 08/31/2024 3:58 PM
== END | disposition home or self-care (01) ==
LOC: RADXRMAIN 15:19
PROVIDERS: ATTEND Internal Medicine
DX: M95.8 Other specified acquired deformities of musculoskeletal system (principal); Z96.612 Presence of left artificial shoulder joint

== ENCOUNTER → 2024-10-20 | Outpatient (CLI) | payer MEDICARE ==
--- NOTE | 2024-10-20 17:17 | CT ---
EXAMINATION TYPE: CT chest wo con CT DLP: 252.9 mGycm, Automated exposure control for dose reduction was used. DATE OF EXAM: 10/20/2024 5:05 PM COMPARISON: CT chest abdomen and pelvis 07/15/2023 CLINICAL INDICATION:Female, 89 years old with history of J45.40 J84.9 J67.9 R06.09 I50.9 R91.1; PHH, Moderate persistent asthma, uncomplicated. ILD. Hypersensitivity pneumonia. Dyspnea on exertion. CHF. Lung nodule. Pt poor historian. TECHNIQUE: Multiple axial images were obtained through the chest without IV contrast. Lack of IV or o ral contrast limits evaluation of solid and hollow organ viscera. . Coronal and sagittal reformats re viewed. FINDINGS: LUNGS/ PLEURA: No pleural effusion, pneumothorax, focal consolidation. Linear scarring within the laura gula. Unchanged 1.3 cm nodularity with its linear scarring involving the left lower lobe (series 4, i mage 38). Few scattered stable pulmonary micronodules measuring up to 2 mm. No new or enlarging pulmo nary nodules. No honeycombing, bronchiectasis or architectural distortion identified. AIRWAY: Patent and unremarkable.. HEART: Mildly enlarged. . No pericardial effusion. Mild coronary artery calcifications present. MEDIASTINUM: No gross evidence of adenopathy. VASCULATURE: No aortic aneurysm. Atherosclerotic calcification of the aorta and its branches. MUSCULOSKELETAL: No acute osseous abnormalities. Right shoulder arthropathy. Partial visualization of left shoulder arthroplasty change. Multilevel degenerative disc disease. Grade I retrolisthesis of T 12 on L1, L1 on L2, and L2 on L3. Mild S-shaped scoliotic curvature of the thoracolumbar spine. SOFT TISSUES/LYMPH NODES: Unremarkable. LOWER NECK: No significant findings. UPPER ABDOMEN: Left renal 1.2 cm simple appearing cyst. No follow up recommended. Left inferior pole nonobstructing 1 mL calculus. Postsurgical changes from right nephrectomy. IMPRESSION: 1. No CT evidence for acute thoracic process. 2. Stable pulmonary nodules with largest in the left lower lobe measuring up to 1.3 cm. No new or en larging pulmonary nodules. Recommend follow-up CT chest in one year. [facility], , 10/20/2024 5:15 PM
== END | disposition home or self-care (01) ==
LOC: RADCTMAIN 15:27
PROVIDERS: ATTEND Internal Medicine Pulmonary Disease
DX: J45.40 Moderate persistent asthma, uncomplicated (principal); J84.9 Interstitial pulmonary disease, unspecified; J67.9 Hypersensitivity pneumonitis due to unspecified organic dust; R06.09 Other forms of dyspnea; I50.9 Heart failure, unspecified; R91.8 Other nonspecific abnormal finding of lung field
CPT/HCPCS: 71250